=== PATIENT | male | born 2000 | race Caucasian/White ===

== ENCOUNTER 2024-03-09 00:05 | Emergency (ER) | payer OTHER ==
[2024-03-09 00:25] VITALS: BP 133/81; PULSE 100; RESP 20; TEMP 98.4; BMI 29.3
[2024-03-09] MEDS ORDERED: KETOROLAC TROMETHAMINE 30 MG/1 ML VIAL ONE ×2 (00:35)
[2024-03-09] MEDS ORDERED: LIDOCAINE 5% TOPICAL PATCH ONE (00:35)
[2024-03-09] MEDS: KETOROLAC TROMETHAMINE 30 MG/1 ML VIAL IM ONE (00:41)
[2024-03-09] MEDS: LIDOCAINE 5% TOPICAL PATCH TP ONE (00:41)
[2024-03-09] MEDS ORDERED: METHOCARBAMOL 500 MG TABLET ONE (00:57)
[2024-03-09] MEDS: METHOCARBAMOL 500 MG TABLET PO ONE (01:05)
[2024-03-09] MEDS ORDERED: LIDOCAINE PATCH REMOVAL MC SCH (22:00)
== END 2024-03-09 04:13 | disposition home or self-care (01) ==
LOC: JER 00:05
PROC: 3E0333Z Introduction of Anti-inflammatory into Peripheral Vein, Percutaneous Approach (ICD-10-PCS; principal; 2024-03-09)
DX: M54.12 Radiculopathy, cervical region (principal); R20.0 Anesthesia of skin; R20.2 Paresthesia of skin; R29.898 Other symptoms and signs involving the musculoskeletal system
CPT/HCPCS: 72125-TC; 93005; 93010; 99284-25